=== PATIENT | male | born 1995 | race Caucasian/White ===

== ENCOUNTER 2023-08-10 15:40 | Emergency (ER) | payer SELFPAY ==
[2023-08-10 15:43] VITALS: BP 126/89; PULSE 101; RESP 16; TEMP 36.6; O2SAT 99; BMI 24.2
[2023-08-10] MEDS: ONDANSETRON PF 4 MG/2 ML VIAL IV (16:22)
[2023-08-10] MEDS: 0.9 % SODIUM CHLORIDE 1,000 ML 100 ML IV (16:22)
[2023-08-10 16:40] LABS: Basophils Percent Auto 0.2 % (0.2-2.0); Eosinophils Absolute Auto 0.4 10^3/uL (0.0-0.7); Eosinophils Percent Auto 2.2 % (0.9-7.0); Hematocrit 53.6 % (42.0-54.0); Hemoglobin 17.6 g/dL (14.0-18.0); Immature Granulocytes Abs Auto 0.05 10^3/uL (0.00-0.03); Immature Granulocytes Pct Auto 0.3 % (0.0-0.5); Lymphocytes Percent Auto 12.2 % (20.5-60.0); Mean Corpuscular HGB Conc 32.8 g/dL (29.9-35.2); Mean Corpuscular Hemoglobin 28.3 pg (25.9-34.0); Monocytes Absolute Auto 1.1 10^3/uL (0.3-0.8); Monocytes Percent Auto 6.6 % (1.7-12.0); Neutrophils Percent Auto 78.5 % (43.0-75.0); Platelet Count 310 10^3/uL (150-450); Red Blood Count 6.23 10^6/uL (4.70-6.10); Red Cell Distribution Width 12.7 % (11.0-15.0); White Blood Count 16.6 10^3/uL (4.0-11.0)
[2023-08-10 16:52] LABS: Alanine Aminotransferase 100 U/L (16-63); Albumin Globulin Ratio 0.8; Albumin Level 4.3 g/dL (3.4-5.0); Alkaline Phosphatase 144 U/L (46-116); Anion Gap 13.3; Aspartate Amino Transferase 37 U/L (15-37); BUN Creatinine Ratio 12.1; Bilirubin Total 0.4 mg/dL (0.2-1.0); Carbon Dioxide 31.7 mmol/L (21.0-32.0); Chloride 100 mmol/L (98-107); Estimated GFR (African America >60 (>=60); Estimated GFR (Non-African Ame >60 (>=60); Globulin 5.1 g/dL; Glucose 105 mg/dL (74-106); Sodium 141 mmol/L (136-145); Total Protein 9.4 g/dL (6.4-8.2)
[2023-08-10 17:00] VITALS: BP 121/72; PULSE 88; RESP 18; O2SAT 100
--- NOTE | 2023-08-10 17:23 | ED_ITS ---
HPI - Abdominal Pain General Chief Complaint: Abdominal Pain Stated Complaint: Abdominal Pain, Nausea/Vomiting Time Seen by Provider: 08/10/23 15:41 Source: patient Mode of arrival: walk-in Limitations: no limitations Related Data Previous Rx's Medication Instructions Recorded hyoscyamine sulfate 0.125 mg 0.125 mg PO Q6H PRN abdominal pain 08/10/23 sublingual tablet (Levsin/SL) #20 tabs ondansetron 4 mg disintegrating 4 mg PO Q6H PRN nausea and 08/10/23 tablet vomiting #14 tabs Allergies Allergy/AdvReac Type Severity Reaction Status Date / Time No Known Drug Allergies Allergy Verified 08/10/23 15:43 PFSH PFSH Social History Smoking status: Current every day smoker Exam Constitutional Vital Signs, click to edit/add: Last Vital Signs Temp 97.8 F 08/10/23 15:43 Pulse 88 08/10/23 17:00 Resp 18 08/10/23 17:00 BP 121/72 08/10/23 17:00 Pulse Ox 100 08/10/23 17:00 O2 Del Method Room Air 08/10/23 15:43 Course Vital Signs Vital signs: Vital Signs Temperature 97.8 F 08/10/23 15:43 Pulse Rate 101 H 08/10/23 15:43 Respiratory Rate 16 08/10/23 15:43 Blood Pressure 126/89 08/10/23 15:43 Pulse Oximetry 99 08/10/23 15:43 Oxygen Delivery Method Room Air 08/10/23 15:43 Temperature 97.8 F 08/10/23 15:43 Pulse Rate 88 08/10/23 17:00 Respiratory Rate 18 08/10/23 17:00 Blood Pressure 121/72 08/10/23 17:00 Pulse Oximetry 100 08/10/23 17:00 Oxygen Delivery Method Room Air 08/10/23 15:43 MDM - Abdominal Pain MDM Narrative Medical decision making narrative: No sign of meningitis or acute bacterial infection on examination. Peripheral IV established blood drawn and sent for testing. He was given normal saline IV fluid, IV Zofran and oral dissolvable Levsin. White blood cell count elevated at 16.6 with left shift noted. CMP notable for normal electrolytes and renal function, elevated ALT and alk phos, normal bilirubin. Patient felt better after ED treatment. He had decrease in his abdominal pain and almost complete resolution of his nausea. He and I discussed his results and he was discharged home with recommendation to maintain a clear liquid diet and advance as tolerated once his nausea and vomiting subside. He was also prescribed oral dissolvable Zofran for nausea and Levsin to take for any abdom inal pain. Lab Data Attestation: I reviewed the patient's lab results. Labs: Lab Results 08/10/23 Range/Units 16:19 WBC 16.6 H (4.0-11.0) 10^3/uL RBC 6.23 H (4.70-6.10) 10^6/uL Hgb 17.6 (14.0-18.0) g/dL Hct 53.6 (42.0-54.0) % MCV 86.0 (80.0-94.0) fL MCH 28.3 (25.9-34.0) pg MCHC 32.8 (29.9-35.2) g/dL RDW 12.7 (11.0-15.0) % Plt Count 310 (150-450) 10^3/uL MPV 11.0 (9.5-13.5) fL Neut % (Auto) 78.5 H (43.0-75.0) % Lymph % (Auto) 12.2 L (20.5-60.0) % [place] % (Auto) 6.6 (1.7-12.0) % Eos % (Auto) 2.2 (0.9-7.0) % Baso % (Auto) 0.2 (0.2-2.0) % Neut # (Auto) 13.0 H (1.4-6.5) 10^3/uL Lymph # (Auto) 2.0 (1.2-3.8) 10^3/uL [place] # (Auto) 1.1 H (0.3-0.8) 10^3/uL Eos # (Auto) 0.4 (0.0-0.7) 10^3/uL Baso # (Auto) 0.0 (0.0-0.1) 10^3/uL Abs Immat Gran (auto) 0.05 H (0.00-0.03) 10^3/uL Imm/Tot Granulo (auto) 0.3 (0.0-0.5) % Sodium 141 (136-145) mmol/L Potassium 4.0 (3.5-5.1) mmol/L Chloride 100 (98-107) mmol/L Carbon Dioxide 31.7 (21.0-32.0) mmol/L Anion Gap 13.3 BUN 12.0 (7.0-18.0) mg/dL Creatinine 0.99 (0.70-1.30) mg/dL Est GFR ( Amer) >60 (>=60) Est GFR (Non-Af Amer) >60 (>=60) BUN/Creatinine Ratio 12.1 Glucose 105 (74-106) mg/dL Calcium 10.0 (8.5-10.1) mg/dL Total Bilirubin 0.4 (0.2-1.0) mg/dL AST 37 (15-37) U/L ALT 100 H (16-63) U/L Alkaline Phosphatase 144 H (46-116) U/L Total Protein 9.4 H (6.4-8.2) g/dL Albumin 4.3 (3.4-5.0) g/dL Globulin 5.1 g/dL Albumin/Globulin Ratio 0.8 Lipase 22.0 (16.0-77.0) U/L Discharge Plan Discharge Chief Complaint: Abdominal Pain Clinical Impression: Abdominal pain, Vomiting Patient Disposition: Home, Self-Care Time of Disposition Decision: 17:25 Prescriptions / Home Meds: New hyoscyamine sulfate [Levsin/SL] 0.125 mg tablet, sublingual 0.125 mg PO Q6H PRN (Reason: abdominal pain) Qty: 20 0RF ondansetron 4 mg tablet,disintegrating 4 mg PO Q6H PRN (Reason: nausea and vomiting) Qty: 14 0RF Instructions: Acute Nausea and Vomiting (ED), Abdominal Pain (ED) Stand Alone Forms: Portal Instructions Referrals: Physician,Non-Staff, MD [Primary Care Provider] - 1 week
== END 2023-08-10 17:41 | disposition home or self-care (01) ==
PROVIDERS: Emergency Provider Emergency Medicine
DX: R10.9 Unspecified abdominal pain (principal); R11.10 Vomiting, unspecified; F17.200 Nicotine dependence, unspecified, uncomplicated
CPT/HCPCS: 36415; 80053; 83690; 85025; 96374; 99284; J2405

== ENCOUNTER 2023-10-28 04:59 | Emergency (ER) | payer SELFPAY ==
[2023-10-28 05:01] VITALS: BP 147/95; PULSE 111; TEMP 36.6; O2SAT 98; BMI 25.0
--- OUTSIDE RECORDS SUMMARY | 2023-10-28 05:05 | XMS_ITS | CCD ---
Author Organization [facility] Care Team Providers Care Java Lead Engineer Name Role Phone HOUSE, VIRGEN Primary Care Unavailable PAY, YADI Consulting Unavailable PAY, YADI Admitting Unavailable PAY, YADI Attending Unavailable HOUSE, VIRGEN Primary Care Unavailable GERMAIN, MANUEL Hernandez Consulting Unavailable GERMAIN, MANUEL Hernandez Admitting Unavailable GERMAIN, MANUEL Hernandez Attending Unavailable AGATHA, HORTENCIA Felix Consulting Unavailable HOUSE, VIRGEN Primary Care Unavailable PARAG, WILBUR Admitting Unavailable PARAG, WILBUR Attending Unavailable PARAG, WILBUR Consulting Unavailable HOUSE, VIRGEN Primary Care Unavailable HAY, NEAL Admitting Unavailable HAY, NEAL Attending Unavailable CHRISSIE, SILVIO Consulting Unavailable Problems Active Problems Problem Classification Problem Date Documented Da te Episodic/Chronic Anxiety disorders (1 source) Anxiety disorder, unspecified; Translations: [ANXIETY DISORDER UNSPECIFIED] Onset: 04-30-2019 Chronic Anxiety disorders (1 source) Irritability and anger; Translations: [IRRITABILITY AND ANGER] Onset: 07-02-2019 Episodic Other ear and sense organ disorders (4 sources) Unspecified hearing loss, left ear; Translations: [UNSPECIFIED HEARING LOSS LEFT EAR] Onset: 07-05-2019 Chronic Other ear and sense organ disorders (1 source) Otalgia, left ear; Translations: [OTALGIA LEFT EAR] Onset: 07-09-2019 Episodic Other upper respiratory infections (5 sources) Acute pharyngitis, unspecified; Translations: [Acute upper respiratory infection, unspecified] Onset: 11-16-2018 Episodic Otitis media and related conditions (1 source) Otitis media, unspecified, left ear; Translations: [OTITIS MEDIA UNSPECIFIED LEFT EAR] Onset: 07-09-2019 Episodic Substance-related disorders (2 sources) Nicotine dependence, cigarettes, uncomplicated; Translations: [Other stimulant abuse, uncomplicated] Onset: 07-02-2019 Chronic Suicide and intentional self-inflicted injury (4 sources) Suicidal ideations; Translations: [SUICIDAL IDEATIONS] Onset: 06-29-2019 Episodic Past or Other Problems Problem Classification Problem Date Documented Da te Episodic/Chronic Other lower respiratory disease (3 sources) Shortness of breath; Translations: [SHORTNESS OF BREATH] Onset: 04-28-2019 Episodic Residual codes; unclassified (1 source) Personal history of other specified conditions; Translations: [PERSONAL HISTORY OTH SPEC CONDITION] Onset: 04-30-2019 Episodic Results Test Name Value Interpretation Reference Range Facil ity ACETAMINOPHENon 06-29-2019 Acetaminophen [Mass/Vol] <1.0 Critically low 10.1-30.0 [facility] Comment on above: Performed By: #### S SCRN, THRTCX #### [facility] [address] [place], [place] [id number] [place] Mel CBC AUTO DIFFon 06-29-2019 Basophils (Bld) [#/Vol] 0.0 103/ul Normal 0.0-0.1 [facility] Comment on above: Performed By: #### C BC #### [facility] [address] [place], [place] [address] [place] Mel Basophils/100 WBC (Bld) 0.4 % Normal 0.2-2.0 [facility] Comment on above: Performed By: #### C BC #### [facility] [address] [place], [place] [address] [place] Mel Eosinophils (Bld) [#/Vol] 0.1 103/ul Normal 0.0-0.7 [facility] Comment on above: Performed By: #### C BC #### [facility] [address] [place], [place] [address] [place] Mel Eosinophils/100 WBC (Bld) 1.4 % Normal 0.9-7.0 [facility] Comment on above: Performed By: #### C BC #### [facility] [address] [place], [place] [address] [place] Mel Erythrocyte distribution width (RBC) [Ratio] 12.8 % Normal 11.0-15.0 [facility] Comment on above: Performed By: #### C BC #### [facility] [address] [place], [place] [address] [place] Mel Hematocrit (Bld) [Volume fraction] 47.7 % Normal 42.0-54.0 [facility] Comment on above: Performed By: #### C BC #### [facility] [address] [place], [place] [address] [place] Mel Hemoglobin (Bld) [Mass/Vol] 15.8 g/dL Normal 14.0-18.0 [facility] Comment on above: Performed By: #### C BC #### [facility] [address] [place], [place] [address] [place] Mel IG # 0.03 10e3/ul Normal 0.00-0.03 [facility] Comment on above: Performed By: #### C BC #### [facility] [address] [place] [address] [place] Mel IG % 0.4 % Normal 0.0-0.5 [facility] Comment on above: Performed By: #### C BC #### [facility] [address] [place] [address] [place] Mel Lymphocytes (Bld) [#/Vol] 1.6 103/ul Normal 1.2-3.8 [facility] Comment on above: Performed By: #### C BC #### [facility] [address] [place], [place] [address] [place] Mel Lymphocytes/100 WBC (Bld) 19.4 % Critically low 20.5-60.0 [facility] Comment on above: Performed By: #### C BC #### [facility] [address] [place], [place] [address] Pepitojacob Leal MANUAL DIFF REQ NO Normal [facility] Comment on above: Performed By: #### C BC #### [facility] [address] [place], [place] [address] [place] Mel MCH (RBC) [Entitic mass] 28.5 pg Normal 25.9-34.0 [facility] Comment on above: Performed By: #### C BC #### [facility] [address] [place], [place] [address] Pep[place] Mel MCHC (RBC) [Mass/Vol] 33.1 g/dL Normal 29.9-35.2 [facility] Comment on above: Performed By: #### C BC #### [facility] [address] [place], [place] [address] Pepito Mel MCV (RBC) [Entitic vol] 85.9 fL Normal 80.0-94.0 [facility] Comment on above: Performed By: #### C BC #### [facility] [address] [place], [place] [address] Pep[place] Mel Monocytes (Bld) [#/Vol] 0.7 103/ul Normal 0.3-0.8 [facility] Comment on above: Performed By: #### C BC #### [facility] [address] [place], [place] [address] Pepito Mel Monocytes/100 WBC (Bld) 8.3 % Normal 1.7-12.0 [facility] Comment on above: Performed By: #### C BC #### [facility] [address] [place] [id number] Pepito Mel Neutrophils (Bld) [#/Vol] 5.7 103/ul Normal 1.4-6.5 [facility] Comment on above: Performed By: #### C BC #### [facility] [address] [place] [address] Pepito Mel Neutrophils/100 WBC (Bld) 70.1 % Normal 43.0-75.0 [facility] Comment on above: Performed By: #### C BC #### [facility] [address] [place] [address] Pepito Mel Platelet mean volume (Bld) [Entitic vol] 10.0 fL Normal 9.5-13.5 [facility] Comment on above: Performed By: #### C BC #### [facility] [address] [place] [address] Pepito Mel Platelets (Bld) [#/Vol] 223 103/ul Normal 150-450 [facility] Comment on above: Performed By: #### C BC #### [facility] [address] [place] [address] Pep[place] Mel RBC (Bld) [#/Vol] 5.55 106/ul Normal 4.70-6.10 [facility] Comment on above: Performed By: #### C BC #### [facility] [address] [place] [address] Pepito Leal WBC (Bld) [#/Vol] 8.1 103/ul Normal 4.0-11.0 [facility] Comment on above: Performed By: #### C BC #### [facility] [address] [place] [address] Pepito Leal DRUG SCREEN RAPID (URINE)on 06-29-2019 AMP Positive Normal NEGATIVE [facility] Comment on above: Performed By: #### E RUR, DRUGRPD #### [facility] [address] [place] [address] [place]ito Leal BAR Negative Normal NEGATIVE [facility] Comment on above: Performed By: #### E RUR, DRUGRPD #### [facility] [address] [place] [address] Pepitojacob Leal BUP Negative Normal NEGATIVE [facility] Comment on above: Performed By: #### E RUR, DRUGRPD #### [facility] [address] [place] [address] Pepitojacob Leal BZO Negative Normal NEGATIVE [facility] Comment on above: Performed By: #### E RUR, DRUGRPD #### [facility] [address] [place] [address] Pepitojacob Leal ANUPAMA Negative Normal NEGATIVE [facility] Comment on above: Performed By: #### E RUR, DRUGRPD #### [facility] [address] [place] [address] Pepito Leal CUT-OFFS SEE BELOW Normal [facility] Comment on above: Result Comment: AMP (Amphetamine): 500ng/mL, BAR (Barbituates): 200 ng/mL, BZO (Benzodiazepines): 150 ng/mL, BUP (Buprenorphine): 10 ng/mL, ANUPAMA (Cocaine): 150 ng/mL, mAMP (Methamphetamine): 500 ng/mL, MTD (Methadone): 200 ng/mL, OPI (Opiates): 100 ng/mL or 2000 ng/mL, OXY (Oxycodone): 100 ng/mL, PCP (Phencyclidine): 25 ng/mL, PPX (Propoxyphene): 300 ng/mL, THC (Cannabinoids): 50 ng/mL, TCA (Trycyclic Antidepressants): 300 ng/mL Performed By: #### E RUR, DRUGRPD #### [facility] [address] [place] [address] [place] Mel DRUG CUT HEADER DRUG CLASS TEST SYSTEM CUT-OFF CONCENTRATIONS ARE FOLLOWS: Normal [facility] Comment on above: Performed By: #### E RUR, DRUGRPD #### [facility] [address] [place] [address] [place] Mel mAMP Positive Normal NEGATIVE [facility] Comment on above: Performed By: #### E RUR, DRUGRPD #### [facility] [address] [place] [address] [place]ito Mel MTD Negative Normal NEGATIVE [facility] Comment on above: Performed By: #### E RUR, DRUGRPD #### [facility] [address] [place] [address] [place] Mel OPI Negative Normal NEGATIVE [facility] Comment on above: Performed By: #### E RUR, DRUGRPD #### [facility] [address] [place] [address] Pepito Mel OXY Negative Normal NEGATIVE [facility] Comment on above: Performed By: #### E RUR, DRUGRPD #### [facility] [address] [place] [address] Pepito Mel PCP Negative Normal NEGATIVE [facility] Comment on above: Performed By: #### E RUR, DRUGRPD #### [facility] [address] [place] [address] Pepito Mel PPX Negative Normal NEGATIVE [facility] Comment on above: Performed By: #### E RUR, DRUGRPD #### [facility] [address] [place] [address] Pepito Mel TCA Negative Normal NEGATIVE [facility] Comment on above: Performed By: #### E RUR, DRUGRPD #### [facility] [address] [place] [address] Pepito Mel THC Negative Normal NEGATIVE [facility] Comment on above: Performed By: #### E RUR, DRUGRPD #### [facility] [address] [place] [address] Pepito Mel ER URINE PROFILEon 9 Bilirubin [Mass/Vol] Negative Normal NEGATIVE [facility] Comment on above: Performed By: #### E RUR, DRUGRPD #### [facility] [address] [place] [address] [place]ito Mel BLOOD Negative Normal NEGATIVE [facility] Comment on above: Performed By: #### E RUR, DRUGRPD #### [facility] [address] [place] [address] Pepito Mel Clarity (U) CLEAR Normal [facility] Comment on above: Performed By: #### E RUR, DRUGRPD #### [facility] [address] [place] [address] Pepito Mel Color (U) LT. YELLOW Normal YELLOW [facility] Comment on above: Performed By: #### E RUR, DRUGRPD #### [facility] [address] [place] [address] Pepito Mel ERUAHD A micrscopic examination will be performed if indicated. Normal [facility] Comment on above: Performed By: #### E RUR, DRUGRPD #### [facility] [address] [place] [address] [place]ito Mel Glucose [Mass/Vol] Negative Normal NEGATIVE [facility] Comment on above: Performed By: #### E RUR, DRUGRPD #### [facility] [address] [place] [address] [place] Mel Ketones Ql (U) Negative Normal NEGATIVE [facility] Comment on above: Performed By: #### E RUR, DRUGRPD #### [facility] [address] [place] [address] [place]ito Mel Nitrite Ql (U) Negative Normal NEGATIVE The [facility] Comment on above: Performed By: #### E RUR, DRUGRPD #### [facility] [address] [place] [id number] Pepito Mel pH (Bld) 6.0 Normal 5-9 [facility] Comment on above: Performed By: #### Luis GODINEZ DRUGRPD #### [facility] [address] [place] [id number] [place] Mel Protein (U) [Mass/Vol] TRACE Normal [facility] Comment on above: Performed By: #### Luis GODINEZ DRUGRPD #### [facility] [address] [place] [id number] [place]ito Mel SPEC GRAVITY 1.015 Normal 1.005-<=1.025 The [facility] Comment on above: Performed By: #### Luis GODINEZ DRUGRPD #### [facility] [address] [place], [place] [address] [place] Mel UR MICRO IND NOT INDICATED Normal [facility] Comment on above: Performed By: #### Luis GODINEZ DRUGRPD #### [facility] [address] [place], [place] [address] [place] Mel Urobilinogen Qn (U) 0.2 EU/dl Normal [facility] Comment on above: Performed By: #### Luis GODINEZ DRUGVIVID #### [facility] [address] [place], [place] [address] [place] Mel WBC (Bld) [#/Vol] Negative Normal NEGATIVE [facility] Comment on above: Performed By: #### Luis GODINEZ DRUGRPD #### [facility] [address] [place], [place] [address] [place] Mel ETHANOL (BLD ALC)on 06-29-20 19 Ethanol [Mass/Vol] mg/dL Normal [facility] Comment on above: Performed By: #### Ewa SANCHEZ THRTCX #### [facility] [address] [place], [place] [address] [place] Mel Ethanol [Mass/Vol] NOTE: 80 mg/dl is the legal limit for a blood alcohol level Normal [facility] Comment on above: Performed By: #### S SCRN, THRTCX #### [facility] [address] [place] [id number] Pepito Mel PROF 14(COMP METB)on 019 Albumin [Mass/Vol] 4.3 g/dL Normal 3.5-5.0 [facility] Comment on above: Performed By: #### S SCRN, THRTCX #### [facility] [address] [place] [id number] Pepito Mel Albumin/Globulin [Mass ratio] 1.1 {ratio} Normal [facility] Comment on above: Performed By: #### S SCRN, THRTCX #### [facility] [address] [place] [id number] Pepito Mel ALP [Catalytic activity/Vol] 99 U/L Normal 38-126 [facility] Comment on above: Performed By: #### S SCRN, THRTCX #### [facility] [address] [place] [address] Pepito Mel ALT [Catalytic activity/Vol] 55 U/L Normal 21-72 [facility] Comment on above: Performed By: #### S SCRN, THRTCX #### [facility] [address] [place] [id number] Pepito Mel Anion gap [Moles/Vol] 9.6 mmol/L Normal [facility] Comment on above: Performed By: #### S SCRN, THRTCX #### [facility] [address] [place] [address] [place]ito Mel AST [Catalytic activity/Vol] 26 U/L Normal 17-59 [facility] Comment on above: Performed By: #### S SCRN, THRTCX #### [facility] [address] [place] [id number] [place] Mel Bilirubin Ql (U) 0.3 mg/dL Normal 0.2-1.3 [facility] Comment on above: Performed By: #### S SCRN, THRTCX #### [facility] [address] [place] [id number] Pepito Mel Calcium [Mass/Vol] 9.2 mg/dL Normal 8.4-10.2 [facility] Comment on above: Performed By: #### S SCRN THRTCX #### [facility] [address] [place] [address] [place]ito Mel Chloride [Moles/Vol] 104 mmol/L Normal 98-107 [facility] Comment on above: Performed By: #### S SCRN, THRTCX #### [facility] [address] [place] [address] Pepito Mel CO2 [Moles/Vol] 29.5 mmol/L Normal 22.0-30.0 [facility] Comment on above: Performed By: #### S DANIEL THRTCX #### [facility] [address] [place] [address] [place]ito Mel Creatinine [Mass/Vol] 1.08 mg/dL Normal 0.66-1.25 [facility] Comment on above: Performed By: #### S DANIEL THRTCX #### [facility] [address] [place] [address] [place] Mel EGFR-AF [place]IZ[place] >60 Normal >=60 [facility] Comment on above: Performed By: #### S DANIEL THRTCX #### [facility] [address] [place] [address] [place] Mel EGFR-NON AF [place] CITIZ[place] >60 Normal >=60 [facility] Comment on above: Performed By: #### S DANIEL THRTCX #### [facility] [address] [place] [address] Pepito Mel Globulin (S) [Mass/Vol] 4.0 g/dL Normal [facility] Comment on above: Performed By: #### S SCRGisele, THRTCX #### [facility] [address] [place] [address] [place]ito Mel Glucose [Mass/Vol] 96 mg/dL Normal 74-106 [facility] Comment on above: Performed By: #### S SCRN, THRTCX #### [facility] [address] [place] [address] Pepito Mel Potassium [Moles/Vol] 4.1 mmol/L Normal 3.4-5.0 [facility] Comment on above: Performed By: #### S SCRN THRTCX #### [facility] [address] [place] [address] Pepito Mel Protein [Mass/Vol] 8.3 g/dL Critically high 6.1-8.2 [facility] Comment on above: Performed By: #### S DANIEL THRTCX #### [facility] [address] [place] [address] Pepito Mel Sodium [Moles/Vol] 139 mmol/L Normal 137-145 [facility] Comment on above: Performed By: #### S DANIEL THRTCX #### [facility] [address] [place] [address] Pepito Mel Urea nitrogen [Mass/Vol] 14.0 mg/dL Normal 9.0-20.0 [facility] Comment on above: Performed By: #### S DANIEL THRTCX #### [facility] [address] [place] [address] Pepito Mel Urea nitrogen/Creatinine [Mass ratio] 13.0 mg/mg Normal [facility] Comment on above: Performed By: #### S DANIEL THRTCX #### [facility] [address] [place] [address] Pepito Mel SALICYLATEon 06-29-2019 SALICYLATE 1.0 mg/dL Normal <=20.0 [facility] Comment on above: Performed By: #### S SCRGisele THRTCX #### [facility] [address] [place] [address] Pepito Mel TSHon 06-29-2019 TSH Qn 0.261 uIU/mL Critically low 0.470-4.680 [facility] Comment on above: Performed By: #### S SCRN THRTCX #### [facility] [address] [place] [address] Pepito Mel TSH Qn SEE BELOW Normal [facility] Comment on above: Result Comment: <0.3 4 UIU/ml HYPERTHYROID 0.34-5.60 UIU/ml EUTHYROID >5.60 UIU/ml HYPOTHYROID Performed By: #### S SCRN, THRTCX #### [facility] [address] [place], [place] [address] [place] Mel CBC AUTO DIFFon 04-28-2019 Basophils (Bld) [#/Vol] 0.1 103/ul Normal 0.0-0.1 [facility] Comment on above: Performed By: #### C BC #### [facility] [address] [place], [place] [address] [place] Mel Basophils/100 WBC (Bld) 0.5 % Normal 0.2-2.0 [facility] Comment on above: Performed By: #### C BC #### [facility] [address] [place] [address] Pepito Mel Eosinophils (Bld) [#/Vol] 0.1 103/ul Normal 0.0-0.7 [facility] Comment on above: Performed By: #### C BC #### [facility] [address] [place] [address] Pepito Mel Eosinophils/100 WBC (Bld) 0.9 % Normal 0.9-7.0 [facility] Comment on above: Performed By: #### C BC #### [facility] [address] [place] [address] Pepito Mel Erythrocyte distribution width (RBC) [Ratio] 13.5 % Normal 11.0-15.0 [facility] Comment on above: Performed By: #### C BC #### [facility] [address] [place] [address] Pepito Mel Hematocrit (Bld) [Volume fraction] 48.7 % Normal 42.0-54.0 [facility] Comment on above: Performed By: #### C BC #### [facility] [address] [place], [place] [address] Pepito Mel Hemoglobin (Bld) [Mass/Vol] 16.1 g/dL Normal 14.0-18.0 [facility] Comment on above: Performed By: #### C BC #### [facility] [address] [place] [address] Pepito Mel IG # 0.03 10e3/ul Normal 0.00-0.03 [facility] Comment on above: Performed By: #### C BC #### [facility] [address] [place], [place] [address] [place] Mel IG % 0.3 % Normal 0.0-0.5 [facility] Comment on above: Performed By: #### C BC #### [facility] [address] [place] [address] Pepito Mel Lymphocytes (Bld) [#/Vol] 2.4 103/ul Normal 1.2-3.8 [facility] Comment on above: Performed By: #### C BC #### [facility] [address] [place] [address] Pepito Mel Lymphocytes/100 WBC (Bld) 22.6 % Normal 20.5-60.0 [facility] Comment on above: Performed By: #### C BC #### [facility] [address] [place] [address] Pepito Mel MANUAL DIFF REQ NO Normal [facility] Comment on above: Performed By: #### C BC #### [facility] [address] [place], [place] [address] [place]ito Mel MCH (RBC) [Entitic mass] 28.1 pg Normal 25.9-34.0 [facility] Comment on above: Performed By: #### C BC #### [facility] [address] [place] [address] Pepito Mel MCHC (RBC) [Mass/Vol] 33.1 g/dL Normal 29.9-35.2 [facility] Comment on above: Performed By: #### C BC #### [facility] [address] [place], [place] [address] Pepito Mel MCV (RBC) [Entitic vol] 85.0 fL Normal 80.0-94.0 [facility] Comment on above: Performed By: #### C BC #### [facility] [address] [place], [place] [address] Pepito Mel Monocytes (Bld) [#/Vol] 0.8 103/ul Normal 0.3-0.8 [facility] Comment on above: Performed By: #### C BC #### [facility] [address] [place], [place] [address] Pepito Mel Monocytes/100 WBC (Bld) 7.5 % Normal 1.7-12.0 [facility] Comment on above: Performed By: #### C BC #### [facility] [address] [place], [place] [address] Pepito Mel Neutrophils (Bld) [#/Vol] 7.2 103/ul Critically high 1.4-6.5 [facility] Comment on above: Performed By: #### C BC #### [facility] [address] [place], [place] [address] Pep[place] Mel Neutrophils/100 WBC (Bld) 68.2 % Normal 43.0-75.0 [facility] Comment on above: Performed By: #### C BC #### [facility] [address] [place], [place] [address] [place]ito Mel Platelet mean volume (Bld) [Entitic vol] 10.3 fL Normal 9.5-13.5 [facility] Comment on above: Performed By: #### C BC #### [facility] [address] [place], [place] [address] Pepito Mel Platelets (Bld) [#/Vol] 237 103/ul Normal 150-450 [facility] Comment on above: Performed By: #### C BC #### [facility] [address] [place], [place] [address] Pepito Mel RBC (Bld) [#/Vol] 5.73 106/ul Normal 4.70-6.10 [facility] Comment on above: Performed By: #### C BC #### [facility] [address] [place], [place] [address] [place] Mel WBC (Bld) [#/Vol] 10.5 103/ul Normal 4.0-11.0 [facility] Comment on above: Performed By: #### C BC #### [facility] [address] [place], [place] [address] [place] Mel FREE T4on 04-28-2019 Free T4 [Mass/Vol] 1.26 ng/dL Normal 0.78-2.19 [facility] Comment on above: Performed By: #### F T4 #### [facility] [address] [place] [address] Pepito Leal PROF 14(COMP METB)on 019 Albumin [Mass/Vol] 4.5 g/dL Normal 3.5-5.0 [facility] Comment on above: Performed By: #### C MP #### [facility] [address] [place], [place] [address] [place] Mel Albumin/Globulin [Mass ratio] 1.1 {ratio} Normal [facility] Comment on above: Performed By: #### C MP #### [facility] [address] [place] [address] Pepito Mel ALP [Catalytic activity/Vol] 98 U/L Normal 38-126 [facility] Comment on above: Performed By: #### C MP #### [facility] [address] [place] [address] Pep[place] Mel ALT [Catalytic activity/Vol] 22 U/L Normal 21-72 [facility] Comment on above: Performed By: #### C MP #### [facility] [address] [place], [place] [id number] [place] Mel Anion gap [Moles/Vol] 8.1 mmol/L Normal [facility] Comment on above: Performed By: #### C MP #### [facility] [address] [place], [place] [address] [place] Mel AST [Catalytic activity/Vol] 17 U/L Normal 17-59 [facility] Comment on above: Performed By: #### C MP #### [facility] [address] [place], [place] [address] [place] Mel Bilirubin Ql (U) 0.6 mg/dL Normal 0.2-1.3 [facility] Comment on above: Performed By: #### C MP #### [facility] [address] [place], [place] [address] [place] Mel Calcium [Mass/Vol] 9.6 mg/dL Normal 8.4-10.2 [facility] Comment on above: Performed By: #### C MP #### [facility] [address] [place] [address] Pepito Mel Chloride [Moles/Vol] 102 mmol/L Normal 98-107 [facility] Comment on above: Performed By: #### C MP #### [facility] [address] [place] [address] Pepito Mel CO2 [Moles/Vol] 30.2 mmol/L Critically high 22.0-30.0 [facility] Comment on above: Performed By: #### C MP #### [facility] [address] [place] [address] Pepito Mel Creatinine [Mass/Vol] 1.42 mg/dL Critically high 0.66-1.25 [facility] Comment on above: Performed By: #### C MP #### [facility] [address] [place] [address] [place] Mel EGFR-AF [place] CITIZ[place] >60 Normal >=60 [facility] Comment on above: Performed By: #### C MP #### [facility] [address] [place] [address] Pep[place] Mel EGFR-NON AF [place] CITIZ[place] >60 Normal >=60 [facility] Comment on above: Performed By: #### C MP #### [facility] [address] [place] [address] Pepito Mel Globulin (S) [Mass/Vol] 4.1 g/dL Normal [facility] Comment on above: Performed By: #### C MP #### [facility] [address] [place] [address] Pepito Mel Glucose [Mass/Vol] 131 mg/dL Critically high 74-106 [facility] Comment on above: Performed By: #### C MP #### [facility] [address] [place] [address] Pepito Mel Potassium [Moles/Vol] 3.3 mmol/L Critically low 3.4-5.0 [facility] Comment on above: Performed By: #### C MP #### [facility] [address] [place], [place] [address] Pepito Mel Protein [Mass/Vol] 8.6 g/dL Critically high 6.1-8.2 [facility] Comment on above: Performed By: #### C MP #### [facility] [address] [place], [place] [address] Pepito Mel Sodium [Moles/Vol] 137 mmol/L Normal 137-145 [facility] Comment on above: Performed By: #### C MP #### [facility] [address] [place], [place] [address] Pepito Mel Urea nitrogen [Mass/Vol] 16.0 mg/dL Normal 9.0-20.0 [facility] Comment on above: Performed By: #### C MP #### [facility] [address] [place] [id number] Pepito Mel Urea nitrogen/Creatinine [Mass ratio] 11.3 mg/mg Normal [facility] Comment on above: Performed By: #### C MP #### [facility] [address] [place], [place] [address] Pepito Mel TSHon 04-28-2019 TSH Qn 1.344 uIU/mL Normal 0.470-4.680 [facility] Comment on above: Performed By: #### T SH #### [facility] [address] [place] [address] Pepito Mel TSH Qn SEE BELOW Normal [facility] Comment on above: Result Comment: <0.3 4 UIU/ml HYPERTHYROID 0.34-5.60 UIU/ml EUTHYROID >5.60 UIU/ml HYPOTHYROID Performed By: #### T SH #### [facility] [address] [place] [address] Pepito Mel XR CHEST 2 Von 04-28-2019 XR CHEST 2 V Patient: SHAILESH NETTLES Exam Date: 04/28/2019 : 1995 Gender:M Ordering : DR MANUEL GROVES M.D. Admission #: [id number] Family : Order #: [id number] CLICK HERE TO VIEW EXAM RADIOLOGY REPORT PROCEDURE: RADIOGRAPH CHEST 2 VIEWS COMPARISON: None. INDICATIONS: Acute chest pain for one day FINDINGS: LUNGS: No significant pulmonary parenchymal abnormalities. VASCULATURE: No increased pulmonary vasculature. PLEURA: No pneumothorax, effusion, or pleural thickening. CARDIAC: No cardiomegaly or cardiac silhouette abnormality. MEDIASTINUM: No visible mass or adenopathy. BONES: No fracture or visible bone lesion. OTHER: Negative. CONCLUSION: No acute disease. Dictated by: Hortencia Hogue M.D. on 04/28/2019 at 08:29 Approved by: Hortencia Hogue M.D. on 04/28/2019 at 08:30 Normal [facility] CULTURE THROATon 11-19-2018 CULTURE THROAT Culture Observations: Called beta strep result to Renetta/ROBERTO 11/18/18 @0947 -[facility] Isolate 1 Streptococcus dysgalactiae ssp dysgalact Moderate growth of ORGANISM 1 Streptococcus dysgalactiae ssp dysgalact ANTIBIOTIC M.I.C RX STATUS Benzylpenicillin <=0.06 S F Ampicillin <=0.25 S F Cefotaxime <=0.12 S F Ceftriaxone <=0.12 S F Levofloxacin 0.5 S F Erythromycin <=0.12 S F Clindamycin <=0.25 S F Linezolid <=2 S F Vancomycin 0.5 S F Tetracycline 0.5 S F Normal [facility] Comment on above: Performed By: #### S SCRN, THRTCX #### [facility] [address] [place], [place] [address] Pepito Leal STREPT SCREENon 11-16-2018 STREP SCREEN A Negative Normal NEGATIVE [facility] Comment on above: Performed By: #### S SCRN, THRTCX #### [facility] [address] [place], [place] [address] Pepito Morrisonen Encounters Encounter Date Encounter Type Care Provider Facility Start: 07-05-2019 End: 07-05-2019 Patient encounter procedure [facility] Facility:[facility]1 Start: 06-29-2019 End: 06-29-2019 Patient encounter procedure [facility] Facility: Start: 04-28-2019 End: 04-28-2019 Patient encounter procedure [facility] Facility:H1 Start: 11-16-2018 End: 11-16-2018 Patient encounter procedure [facility] Facility:H1 Payers Date Payer Category Payer Unknown [id number] 1995 Unknown [id number] [id number] 1995 Unknown [id number] [id number] 1995 Unknown [id number] [id number] 1957 Self-pay [id number] 1957 Unknown [id number] Summary Purpose Family History No Family History Records Found Advance Directives No Advanced Directives Records Found Additional Source Comments (unrecognized sect ion and content) No Status Records Found INFORMATION SOURCE (unrecogn ized section and content) DATE CREATED AUTHOR 09/10/2019 The [facility] [place] FOR RECORDS PERTAINING TO PATIENTS WHO ARE OR HAVE BEEN ENROLLED IN A CHEMICAL DEPENDENCY/SUBSTANCEABUSE PROGRAM, SOME INFORMATION MAY BE OMITTED. This clinical summary was aggregated from multiple sources. Caution should be exercised in using it in the provision of clinical care. This summary normalizes information from multiple sources, and as a consequence, information in this document may materially change the coding, format and clinical context of patient data. In addition, data may be omitted in some cases. CLINICAL DECISIONS SHOULD BE BASED ON THE PRIMARY CLINICAL RECORDS. [facility] [employer] [facility]. provides no warranty or guarantee of the accuracy or completeness of information in this document.
--- NOTE | 2023-10-28 05:10 | XR_ITS ---
The [address] [address] Patient Name: SHAILESH NETTLES MRN: [id number] date: 1995 Sex: M Assigned Patient Location: ER Current Patient Location: ER Accession/Order Number: [id number] Exam Date: 10/28/2023 05:15 Report Date: 10/28/2023 05:45 At the request of: SAILAJA GANNON Procedure: XR hand RT min 3V PROCEDURE: XR hand RT min 3V HISTORY: Dog bite, attention fourth finger COMPARISON: XR hand right 01/13/2015 FINDINGS: BONES:No fracture, acute abnormality, or significant arthropathy. SOFT TISSUES:Soft tissue injury involving medial tip of fourth digit. No radiopaque foreign body. EFFUSION:None visible. OTHER: Negative. XR/XR hand RT min 3V IMPRESSION: 1. Soft tissue injury of tip of fourth digit. No radiopaque foreign body. 2. No acute bone involvement. Electronically authenticated by: MICHELLE ACE Date: 10/28/2023 05:45
--- NOTE | 2023-10-28 05:12 | ED_ITS ---
HPI - Wound/Laceration General Chief Complaint: Wound/Laceration Stated Complaint: Dog Bite Time Seen by Provider: 10/28/23 05:08 Source: patient Mode of arrival: walk-in Limitations: no limitations History of Present Illness HPI narrative: 28-year-old male presents for dog bite. This was sustained from a friend's dog about 30 minutes before coming in. His last tetanus shot was more than 10 years ago. He is most concerned about his right ring finger, distal aspect. He is concerned it might be broken. No other injuries were sustained. Related Data Previous Rx's ?Medication ?Instructions ?Recorded amoxicillin 875 mg-potassium 1 tab PO BID #10 tabs 10/28/23 clavulanate 125 mg tablet ibuprofen 800 mg tablet 800 mg PO Q8H PRN pain #20 tabs 10/28/23 Allergies Allergy/AdvReac Type Severity Reaction Status Date / Time No Known Drug Allergies Allergy Verified 10/28/23 05:05 Review of Systems ROS Narrative A ten point review of systems is negative except as noted above. PFSH PFSH Social History Smoking status: Current every day smoker Exam Narrative Exam Narrative: Nurses note and vital signs reviewed and patient is not hypoxic. General: The patient appears well and in no apparent distress. Patient is resting comfortably on cart. Skin: Warm, dry, no pallor noted. There is no rash noted. Head: Normocephalic, atraumatic Eye: Normal conjunctiva, no drainage Ears, Nose, Mouth, and Throat: oral mucosa is moist. Nares patent. Cardiovascular: Regular Rate and Rhythm Respiratory: Patient is in no distress, no accessory muscle use GI: Normal bowel sounds, no tenderness to palpation, no masses appreciated. No rebound, guarding, or rigidity noted. Musculoskeletal: Abrasions are noted to his left thumb and index finger. The right hand has punctures and abrasions to the index, middle, ring, and small finger. Most notably is the finger pad of the right ring finger. There is a laceration present and there is a subungual hematoma. Neurological: A&O, normal speech Psychiatric: Cooperative Constitutional Vital Signs, click to edit/add: Last Vital Signs Temp 98 F 10/28/23 05:01 Pulse 111 H 10/28/23 05:01 Resp 20 10/28/23 05:01 BP 147/95 H 10/28/23 05:01 Pulse Ox 98 04/27/24 05:01 O2 Del Method Room Air 10/28/23 05:01 Course Vital Signs Vital signs: Vital Signs Temperature 98 F 10/28/23 05:01 Pulse Rate 111 H 10/28/23 05:01 Respiratory Rate 20 10/28/23 05:01 Blood Pressure 147/95 H 10/28/23 05:01 Pulse Oximetry 98 10/28/23 05:01 Oxygen Delivery Method Room Air 10/28/23 05:01 Temperature 98 F 10/28/23 05:01 Pulse Rate 111 H 10/28/23 05:01 Respiratory Rate 20 10/28/23 05:01 Blood Pressure 147/95 H 10/28/23 05:01 Pulse Oximetry 98 10/28/23 05:01 Oxygen Delivery Method Room Air 10/28/23 05:01 MDM - Wound/Laceration MDM Narrative Medical decision making narrative: X-rays are negative. The wounds have been cleansed and dressed and he is prescribed prophylactic Augmentin. Tetanus status updated. Treatment diagnosis and follow-up were discussed with the patient. Differential Diagnosis Differential diagnosis: Likely laceration and other (Dog bite, fracture) Imaging Data Right hand x-ray: Radiologist's impression: ITS Impressions Hand X-Ray 10/28/23 05:10 IMPRESSION: 1. Soft tissue injury of tip of fourth digit. No radiopaque foreign body. 2. No acute bone involvement. Electronically authenticated by: MICHELLE ACE Date: 10/28/2023 05:45 Discharge Plan Discharge Stand Alone Forms: Portal Instructions Chief Complaint: Wound/Laceration Clinical Impression: Dog bite Patient Disposition: Home, Self-Care Time of Disposition Decision: 05:50 Condition: Good Mode of Transportation: Private Vehicle Prescriptions / Home Meds: New ibuprofen 800 mg tablet 800 mg PO Q8H PRN (Reason: pain) Qty: 20 0RF amoxicillin-pot clavulanate 875-125 mg tablet 1 tab PO BID Qty: 10 0RF Print Language: Pakistani Instructions: Animal Bite (ED) Referrals: Physician,Non-Staff, MD [Primary Care Provider] - 1 week
[2023-10-28] MEDS: ADACEL DIPH,PERTUSS(ACELL),TET VAC/PF 0.5 ML ADULT SYRINGE IM (05:25)
[2023-10-28] MEDS: BACITRACIN OINTMENT 28.4 GM TUBE 1 APPLIC TOPICAL (06:07)
[2023-10-28] MEDS: IBUPROFEN 400 MG TABLET 800 MG PO (06:08)
== END 2023-10-28 06:15 | disposition home or self-care (01) ==
PROVIDERS: Emergency Provider Emergency Medicine
DX: S61.451A Open bite of right hand, initial encounter (principal); S61.452A Open bite of left hand, initial encounter; W54.0XXA Bitten by dog, initial encounter; F17.210 Nicotine dependence, cigarettes, uncomplicated; Z23 Encounter for immunization
CPT/HCPCS: 73130; 90471; 90715; 99283